=== PATIENT | male | born 1990 | race Caucasian/White ===

== ENCOUNTER 2020-09-11 02:49 | Observation (INO) | payer OTHER ==
[~2020-09-11] VITALS: Ht 180.3 cm; Wt 84.8 kg
[2020-09-11] MEDS ORDERED: SODIUM CHLORIDE 0.9% 1000ML 1,000 ML IV STA (03:17)
[2020-09-11] MEDS ORDERED: ONDANSETRON HCL INJ 2MG/ML 2ML 2 MG/ML VIAL IV STA (03:17)
[2020-09-11] MEDS ORDERED: KETOROLAC TROMETHAMINE 30 MG/ML VIAL IV STA (03:17)
[2020-09-11] MEDS ORDERED: KETOROLAC TROMETHAMINE 30 MG/ML VIAL ONE (03:39)
[2020-09-11] MEDS ORDERED: ONDANSETRON HCL INJ 2MG/ML 2ML 2 MG/ML VIAL ONE (03:39)
[2020-09-11] MEDS ORDERED: SODIUM CHLORIDE 0.9% 1000ML 1,000 ML ONE (03:40)
[2020-09-11] MEDS ORDERED: PIPER-TAZ 3.375 GM 50 ML IV ONE (05:15)
[2020-09-11] MEDS ORDERED: PIPER-TAZ 3.375 GM 50 ML ONE (05:38)
[2020-09-11] MEDS ORDERED: SODIUM CHLORIDE 0.9% 1000ML 1,000 ML IV SCH (05:45)
[2020-09-11] MEDS ORDERED: ONDANSETRON HCL INJ 2MG/ML 2ML 2 MG/ML VIAL IV PRN (05:45)
[2020-09-11] MEDS ORDERED: MORPHINE SULFATE INJ 2 MG/ML SYR IV PRN (06:00)
[2020-09-11] MEDS ORDERED: ACETAMINOPHEN 325 MG TAB PO ONE (07:15)
[2020-09-11] MEDS ORDERED: ACETAMINOPHEN 325 MG TAB ONE (07:17)
[2020-09-11] MEDS ORDERED: BUPIVACAINE HCL 0.5% INJ 30 ML VIAL INJ ONE (09:15)
[2020-09-11] MEDS ORDERED: GENTAMICIN 80MG/NS 100 ML 100 ML IV ONE (10:20)
[2020-09-11] MEDS ORDERED: AMPICILLIN SOD 1 GM/NS 50ML 50 ML IV ONE (10:20)
[2020-09-11] MEDS ORDERED: PIPERACILLIN/TAZOBAC 3.375 GM in SODIUM CHLORIDE 0.9% 50ML 50 ML IV SCH (12:00)
[2020-09-11] MEDS ORDERED: PIPER-TAZ 3.375 GM 50 ML IV SCH (12:00)
[2020-09-11] MEDS ORDERED: ACETAMINOPHEN 1000 MG/100 ML 100 ML IV ONE (12:00)
[2020-09-11] MEDS: LACTATED RINGER'S 1,000 ML INJ SCH ×2 (13:00→21:00)
[2020-09-11] MEDS ORDERED: PIPERACILLIN/TAZOBAC 3.375 GM VIAL ONE (13:14)
[2020-09-11] MEDS ORDERED: SODIUM CHLORIDE 0.9% 100 ML ONE (13:16)
[2020-09-11 15:41] VITALS: BP 105/62
[2020-09-11 15:50] VITALS: BP 105/62
[2020-09-11 15:51] VITALS: BP 105/62
[2020-09-11] MEDS: PIPERACILLIN/TAZOBAC 3.375 GM in SODIUM CHLORIDE 0.9% 50ML 50 ML IV SCH (15:55)
[2020-09-11 18:27] VITALS: BP 160/101
[2020-09-11] MEDS: MORPHINE SULFATE INJ 4 MG/ML INJ 1ML IV PRN (18:37)
[2020-09-11 19:15] VITALS: BP 105/71
[2020-09-11 21:00] VITALS: BP 105/71
[2020-09-12] VITALS (7 sets, daily range): BP systolic 92–122; BP diastolic 69–83
[2020-09-12] MEDS: LACTATED RINGER'S 1,000 ML INJ SCH ×4 (00:40→20:35)
[2020-09-12] MEDS: PIPERACILLIN/TAZOBAC 3.375 GM in SODIUM CHLORIDE 0.9% 50ML 50 ML IV SCH ×3 (00:40→16:59)
[2020-09-12] MEDS: MORPHINE SULFATE INJ 4 MG/ML INJ 1ML IV PRN ×3 (12:30→17:00)
[2020-09-13] MEDS: PIPERACILLIN/TAZOBAC 3.375 GM in SODIUM CHLORIDE 0.9% 50ML 50 ML IV SCH ×3 (00:06→15:30)
[2020-09-13 01:09] VITALS: BP 119/83
[2020-09-13] MEDS: LACTATED RINGER'S 1,000 ML INJ SCH ×2 (05:45→13:30)
[2020-09-13 06:29] VITALS: BP 118/82
[2020-09-13 07:30] VITALS: BP 128/84
[2020-09-13 08:17] VITALS: BP 128/84
[2020-09-13] MEDS ORDERED: HYDROCODONE/APAP 5MG-325MG TAB PO PRN (09:30)
[2020-09-13] MEDS ORDERED: IBUPROFEN 400 MG TAB PO PRN (10:15)
[2020-09-13 11:26] VITALS: BP 119/85
[2020-09-13 15:37] VITALS: BP 110/75
[2020-09-13] MEDS ORDERED: ASPIRIN81 MG PO (15:54)
[2020-09-13] MEDS ORDERED: BACTRIM DS TAB1 EACH PO (16:01)
[2020-09-13] MEDS ORDERED: IBUPROFEN400 MG PO (16:02)
== END 2020-09-13 17:00 | disposition home or self-care (01) ==
LOC: FSED 03:00 → UNDOADMIN 05:43 → ERHOLD 05:43 → OR 09:54 → INTOOBSV 15:15 → MED/SURG 15:15 → IMCU 18:03
PROVIDERS: ADMIT Surgery; ATTEND Surgery
DX: K35.80 Unspecified acute appendicitis (principal); U07.1 COVID-19; Z95.2 Presence of prosthetic heart valve; Z95.5 Presence of coronary angioplasty implant and graft; Z88.5 Allergy status to narcotic agent
CPT/HCPCS: 36415 ×2; 44970; 74176; 80053; 81003; 82948 ×2; 85025; 88304; 96374; 96376; 99284; G0378 ×3; J0131; J0290; J1580; J1885; J2270 ×2; J2405; J2543 ×4; J7030; J7050; J7121 ×2; U0002

== ENCOUNTER 2021-11-29 13:32 | Emergency (ER) | payer OTHER ==
[~2021-11-29] VITALS: Ht 172.7 cm; Wt 93.4 kg
[~2021-11-29 13:32] MED LIST: ASPIRIN81 MG PO; BACTRIM DS TAB1 EACH PO; IBUPROFEN400 MG PO
[2021-11-29 14:53] VITALS: BP 125/84
== END 2021-11-29 15:04 | disposition home or self-care (01) ==
LOC: FSED 13:38
DX: R07.9 Chest pain, unspecified (principal); R00.2 Palpitations; Z95.4 Presence of other heart-valve replacement; Z95.5 Presence of coronary angioplasty implant and graft; R94.31 Abnormal electrocardiogram [ECG] [EKG]
CPT/HCPCS: 71046; 80053; 82553; 84484; 85025; 93005; 99284